=== PATIENT | male | born 1975 | race Hispanic/Latino ===

== ENCOUNTER 2017-07-09 23:06 | Emergency (ER) | payer OTHER ==
[~2017-07-09] VITALS: Ht 185.4 cm; Wt 104.3 kg
[2017-07-09 23:40] VITALS: BP 129/80
--- NOTE | 2017-07-09 23:50 | ED HAND/WRIST INJURY COMPLAINT ---
History of Present Illness General Chief Complaint: Laceration Procedure Stated Complaint: "LT POINTER FINGER CUT WITH KNIFE" Source: patient Exam Limitations: language barrier Vital Signs & Intake/Output Vital Signs & Intake/Output Vital Signs Date Time Temp Pulse Resp B/P B/P Pulse O2 O2 Flow FiO2 Mean Ox Delivery Rate 07/09 2340 98.4 80 18 129/80 97 Room Air ED Intake and Output 07/10 0000 07/09 1200 Intake Total Output Total Balance Patient 230 lb Weight Weight Reported by Patient Measurement Method Allergies Coded Allergies: Penicillins (UNKNOWN REACTION 07/09/17) Triage Note: PT IS MALDIVIAN SPEAKING PT TO ED C/O LACERATION TO 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 UNSURE OF LAST TETANUS. Triage Nurses Notes Reviewed? yes Occurred: just prior to arrival Duration: hour(s): Timing: single episode today Injury Environment: home Severity: moderate, severe Pain/Injury Location: Left: 2nd finger. Method of Injury: laceration HPI: 42-year-old male comes into the emergency room for further evaluation of laceration to left index finger. Patient cut it on knife at Home. Some associated bleeding. Denies any numbness or tingling. He doesn't attend pain. Throbbing. Continuous. Associated bleeding. (Albino Mazariegos) Past History Travel History Traveled to [place] past 21 day No Medical History Any Pertinent Medical History? none Surgical History Surgical History: non-contributory Psychosocial History What is your primary language Cambodian Tobacco Use: Never used Family History Hx Contributory? No (Albino Mazariegos) Review of Systems Review of Systems Constitutional: Reports: no symptoms. EENTM: Reports: no symptoms. Respiratory: Reports: no symptoms. Cardiovascular: Reports: no symptoms. GI: Reports: no symptoms. Genitourinary: Reports: no symptoms. Musculoskeletal: Reports: see HPI. Skin: Reports: see HPI. Neurological/Psychological: Reports: no symptoms. Hematologic/Endocrine: Reports: no symptoms. Immunologic/Allergic: Reports: no symptoms. All Other Systems: Reviewed and Negative (Albino Mazariegos) Physical Exam Physical Exam General Appearance: well developed/nourished, mild distress Head: atraumatic Eyes: Bilateral: normal appearance. Ears, Nose, Throat: normal ENT inspection, hearing grossly normal Neck: normal inspection Cardiovascular/Respiratory: no respiratory distress Back: normal inspection Hand Left: 2nd finger (1 cm superficial lac), distal phalynx Hand Right: normal inspection Neurologic/Tendon: normal sensation, normal motor functions, normal tendon functions, responds to pain, no evidence tendon injury, no pulse deficit Skin: intact, normal color, warm/dry (Albino Mazariegos) Progress Differential Diagnosis: fracture, sprain, TENDON LACERATION, SOFT TISSUE FB Plan of Care: 07/10/2017 12:03:45 AM Patient clinically looks well. In no apparent distress. Superficial laceration. Dermabond and Steri-Strips and finger splint placed. Nurse used for translation. (Albino Mazariegos) Departure Departure Disposition: HOME OR SELF CARE Condition: Stable Clinical Impression Primary Impression: Finger laceration Referrals: Unknown (PCP/Family) Additional Instructions: Keep finger splint on for 10 days. Watch for signs of infection such as redness SWELLING discharge fever chills. Return if any other concerns. Please go over all results of today's visit with your primary care doctor. Contact your primary care doctor to let them know you were here in the emergency room. There may be nonspecific findings which may not be related to your visit today here in the emergency room but may require further evaluation and chronic monitoring by your primary care doctor. If you had a laceration today the chance of foreign body always remains. You should follow-up with your primary care doctor for recheck in 3-5 days for a wound check. If you had an x-ray done there is a chance that a fracture could have been missed on initial read and you should follow-up with your primary care doctor for repeat x-rays if symptoms persist. If your blood pressure was elevated here in the emergency room please have rechecked by [facility] primary care doctor within the next 48. If you were prescribed a narcotic here in the emergency room or any type of controlled substances you're not allowed to drive while taking this medication or operate any type of heavy machinery. Narcotics can make you feel lightheaded dizziness nausea and can cause constipation. You may need to picker operator a stool softener. Thank you for choosing [facility] emergency room. Please return to the emergency room immediately if you have any other concerns worsening of symptoms. Departure Forms: Customer Survey General Discharge Information (Albino Mazariegos) PA/REFINERY OPERATOR HELPER CRUDE UNIT Co-Sign Statement Statement: ED Attending supervision documentation- [] I saw and evaluated the patient. I have also reviewed all the pertinent lab results and diagnostic results. I agree with the findings and the plan of care as documented in the PA's/REFINERY OPERATOR HELPER CRUDE UNIT's documentation. [X] I have reviewed the ED Record and agree with the PA's/REFINERY OPERATOR HELPER CRUDE UNIT's documentation. [] Additions or exceptions (if any) to the PAs/REFINERY OPERATOR HELPER CRUDE UNIT's note and plan are summarized below: [] (Sohan SHIN,Sheldon Quiles) Procedures Laceration/Wound Repair Progress: Left index finger, 1 cm, distal phalanx, irrigated with tap water and Betadine, Dermabond, Steri-Strips, finger wrap and finger splint placed, sterile technique , patient tolerated procedure well (Albino Mazariegos)
== END 2017-07-09 23:57 ==
LOC: ERH 23:06
DX: S61.211A Laceration without foreign body of left index finger without damage to nail, initial encounter (principal); W26.0XXA Contact with knife, initial encounter; Y92.009 Unspecified place in unspecified non-institutional (private) residence as the place of occurrence of the external cause; Y93.9 Activity, unspecified
CPT/HCPCS: 90471; 90714

== ENCOUNTER 2017-07-14 22:39 | Emergency (ER) | payer OTHER ==
--- NOTE | 2017-07-15 00:06 | ED UPPER/LOWER EXTREMITY COMPL ---
History of Present Illness General Chief Complaint: Laceration Procedure Stated Complaint: LAC TO RIGHT POINTER FINGER Source: patient Exam Limitations: language barrier Vital Signs & Intake/Output Vital Signs & Intake/Output Vital Signs Date Time Temp Pulse Resp B/P B/P Pulse O2 O2 Flow FiO2 Mean Ox Delivery Rate 07/15 0019 98.2 78 18 119/64 96 Room Air 07/14 2242 98.4 87 18 122/85 95 Room Air Allergies Coded Allergies: Penicillins (UNKNOWN REACTION 07/09/17) Triage Note: PT TO TRIAGE WITH LAC TO R POINTER FINGER. BLEEDING CONTROLLED. PT CUT FINGER ON METAL BLADE WITH A MACHINE. PT WAS HERE AND HAD LAC GLUED BUT GLUE DID NOT HOLD. WAS HERE ON WEDNESDAY AND HAD TETANUS SHOT. Triage Nurses Notes Reviewed? yes Onset: Abrupt Duration: better Timing: recent history Severity: mild Severity Numbers: 1 HPI: Patient is a 42-year-old male who presents emergency room with concerns of a left second digit index finger laceration 6 days ago where he states that he was seen at another facility where he had Dermabond applied. Patient states that 2 days later at the Dermabond fell off and still has a healing wound to the region. History is limited due to patient being primarily Bulgarian-speaking only however denies any fever chills or signs of infection. Tetanus was up-to-date. Patient was requesting wound evaluation (Javi Del Real) Past History Travel History Traveled to [place] past 21 day No Medical History Any Pertinent Medical History? none Neurological: NONE EENT: NONE Cardiovascular: NONE Respiratory: NONE Gastrointestinal: NONE Hepatic: NONE Renal: NONE Musculoskeletal: NONE Psychiatric: NONE Endocrine: NONE Blood Disorders: NONE Cancer(s): NONE CREW LEAD/Reproductive: NONE Tetanus Vaccine: 07/09/17 Surgical History Surgical History: non-contributory Psychosocial History What is your primary language Bulgarian Tobacco Use: Refused to answer Family History Hx Contributory? No (Javi Del Real) Review of Systems Review of Systems Constitutional: Reports: no symptoms. EENTM: Reports: no symptoms. Respiratory: Reports: no symptoms. Cardiovascular: Reports: no symptoms. Gastrointestinal/Abdominal: Reports: no symptoms. Genitourinary: Reports: no symptoms. Musculoskeletal: Reports: see HPI. Skin: Reports: see HPI. Neurological/Psychological: Reports: no symptoms. Hematologic/Endocrine: Reports: no symptoms. Immunological: Reports: no symptoms. All Other Systems: Reviewed and Negative (Javi Del Real) Physical Exam Physical Exam General Appearance: no apparent distress, alert, comfortable Head: atraumatic Eyes: Bilateral: normal appearance. Ears, Nose, Throat: hearing grossly normal Neck: normal inspection, supple Cardiovascular/Respiratory: no respiratory distress Neurologic/Tendon: normal sensation, normal motor functions, normal tendon functions, responds to pain, no evidence tendon injury, no pulse deficit Skin: normal color, warm/dry Diagram Hands Front 1) WELL HEALING 1.5 CM laceration with full active range of motion with flexion and extension full resisted range of motion no tenderness at no surrounding erythema warmth or discharge (Javi Del Real) Progress Differential Diagnosis: arterial insufficiency, compartment syndrome, contusion, dislocation, DVT, fracture, gout, septic arthritis, sprain, tendon injury Plan of Care: No signs of infection at this time patient's tendons were intact no concerns of fracture. Discussed disposition plan with patient who agrees and has no questions (Javi Del Real) Departure Departure Disposition: HOME OR SELF CARE Condition: Stable Clinical Impression Primary Impression: Laceration of finger of left hand Referrals: Patient Has No Primary Care Dr (PCP/Family) Additional Instructions: As discussed if you notes signs of infection such as redness, pain, swelling, discharge return to emergency room. Departure Forms: Customer Survey General Discharge Information (Javi Del Real) PA/INFORMATION SYSTEMS SUPERVISOR Co-Sign Statement Statement: ED Attending supervision documentation- I saw and evaluated the patient. I have also reviewed all the pertinent lab results and diagnostic results. I agree with the findings and the plan of care as documented in the PA's/INFORMATION SYSTEMS SUPERVISOR's documentation. x I have reviewed the ED Record and agree with the PA's/INFORMATION SYSTEMS SUPERVISOR's documentation. [] Additions or exceptions (if any) to the PAs/INFORMATION SYSTEMS SUPERVISOR's note and plan are summarized below: [] (Irma SHIN,Felice)
[2017-07-15 00:19] VITALS: BP 119/64
== END 2017-07-15 00:21 ==
LOC: ERH 22:39
DX: S61.211A Laceration without foreign body of left index finger without damage to nail, initial encounter (principal); X58.XXXA Exposure to other specified factors, initial encounter; Y93.9 Activity, unspecified; Y92.9 Unspecified place or not applicable
CPT/HCPCS: 99282